=== PATIENT | female | born 1950 | race Caucasian/White ===

== ENCOUNTER → 2017-10-13 11:29 | Outpatient (CLI) | payer OTHER, SELFPAY ==
--- NOTE | 2017-10-13 13:22 | STRESSREP ---
Stress Test Report Exercise stress test. 67-year-old lady with a history of chest pain. Stress protocol: Resting EKG demonstrates normal sinus rhythm with a rate of 76 bpm normal intervals and noted resting blood pressure is 108/78 mmHg. Patient exercised according to regular Camilo protocol for a total duration of 5 minutes. Patient completed 2 minutes into stage III of the Camilo protocol. The maximum heart rate attained was 155 bpm which is 101% maximum predicted heart rate maximum workload attained was 7 metabolic equivalents. Patient maintained sinus rhythm throughout the recording. Upsloping EKG changes only were noted with no meet the criteria for ischemia. No clinical angina was noted. The resting blood pressure is 108/78 with a peak blood pressure 162/74. Conclusion 1 exercise stress test with no EKG criteria for ischemia Good functional capacity.
== END ==
PROVIDERS: Family Provider Family Medicine; PCP Family Medicine; Visit Provider Family Medicine
DX: R07.9 Chest pain, unspecified (principal)
CPT/HCPCS: 93017

== ENCOUNTER 2018-08-21 07:16 | Day surgery (SDC) | payer SELFPAY ==
[2018-08-21] VITALS (8 sets, daily range): BP systolic 76–126; BP diastolic 44–87; PULSE 73–88; RESP 16; TEMP 36.2–36.3; O2SAT 80–100; BMI 34.8
--- NOTE | 2018-08-21 | COLBX_PTH ---
PATIENT: DIANE VASQUEZ LOC: EN U#:[id number] AGE/SX: 68/F ROOM: RE08/21/[address]: Dr. Andrei Francois MD : 1950 BED: DIS: 08/21/2018 SPEC #: [id number] RECD: 08/21/18 11:34 STATUS: ANNA MARIE ORTIZ #: [id number] JORDY: 08/21/18 00:[address]: Andrei Francois DEPT: SURGICAL PATHOLOGY RECD BY: Ulisses Monroe ENTERED: 08/21/18 11:35 SP TYPE: COLON BX OTHR DR: Dr. Tam Bowser MD Tissues: Transverse colon Procedures: Surgery Specimen Level IV HEADER OPERATION: Colonoscopy - open access (MOD) PRE-OP DIAGNOSIS: Screening TISSUE SUBMITTED: Biopsy polyps (2) mid transverse MICROSCOPIC DIAGNOSIS Mid transverse colon polyps, biopsy: Fragments of tubular adenoma. AM:marlon 08/22/18 COMMENT Case has been reviewed in consultation with Dr. Sanchez who concurs with the above diagnosis. IDC:ROSALEE MICROSCOPIC DESCRIPTION Slides are reviewed. GROSS DESCRIPTION Received in fixative is one container labeled with the patient's name and designated biopsy polyps mid transverse (two polyps). The specimen consists of multiple irregular fragments of light grove soft tissue that in aggregate measure 0.8 x 0.5 x 0.1 cm. The specimen is totally submitted in one cassette. / ROSALEE:marlon 08/21/18 TC:5 CPT: 03347
--- NOTE | 2018-08-21 07:42 | PCM.HP.STD ---
Problem List (1) Screening for intestinal cancer Status: Acute History of Present Illness Date of Admission: 08/21/18 The patient is a 68 year old F who presents for screening colonoscopy. She has never had a previous endoscopy. She denies bright red blood per rectum or melena. No abdominal pain. No acute change in bowel habits. She denies any direct family member with colon cancer. She otherwise states that she enjoys good health. She did have a cardiac stress test a year ago which she was told was fine Past Medical History Allergies No Known Allergies Allergy (Verified 08/17/18 14:42) Home Medications: Ambulatory Orders Medication Instructions Recorded Cranberry Fruit [Cranberry] 500 - 1,000 mg PO DAILY 08/17/18 Mulit Avtar 1 pkt PO DAILY 08/17/18 Multivitamin And Minerals 10 ml PO DAILY 08/17/18 Smoking Status: Never smoker Tobacco Use: Non-smoker Review of Systems Constitutional: Denies: Anorexia Cardiovascular: Denies: Chest Pain Respiratory: Denies: Cough Gastrointestinal: Denies: Abdominal Pain Endocrine: Denies: Change in Body Habitus VTE Information - Inpt Only VTE Present on Admission: No Patient Problems: Active and Suspected Problems Screening for intestinal cancer (Acute) - Physical Exam General: Alert, Oriented x3, Cooperative, No apparent distress HEENT: Atraumatic Oral: Moist Mucosa Neck: Supple Lungs: Clear to auscultation Cardiovascular: Regular rate, Regular Rhythm Abdomen: Bowel Sounds Present, Soft, Non Tender Extremities: No clubbing, No Calf Tenderness Musculoskeletal: No Tenderness to Palpation of Joints or Extremities Lymphatic: No Cervical, Supraclavicular, or Inguinal Adenopathy Vital Signs Temp Pulse Resp BP Pulse Ox 97.3 F L 88 16 124/87 H 99 08/21/18 07:39 08/21/18 07:39 08/21/18 07:39 08/21/18 07:39 08/21/18 07:39 Oxygen Delivery Method Room Air Weight: 196 lb 12.8 oz Body Mass Index (BMI) 34.8 Assessment/Plan All Active Problems Screening for intestinal cancer (Acute) I proposed with the patient is screening colonoscopy with possible biopsy or polypectomy as indicated. She has had an opportunity to ask and have questions answered. She presents via our open access program. We will proceed as noted. Andrei Francois M.D., F.A.C.S.
--- NOTE | 2018-08-21 08:24 | OP.ENDO_ITS ---
Patient Name: Radha Rey Procedure Date: 08/21/2018 7:36 AM Date of : 1950 Age: 68 Procedure: Colonoscopy Indications: Screening for colorectal malignant neoplasm Providers: Andrei Francois MD Referring MD: Andrei Francois MD Medicines: Midazolam 3.5 mg IV, Meperidine 100 mg IV Patient Profile: This is a 68 year old female. Last Colonoscopy: none. The patient's first colonoscopy is today. Complications: No immediate complications. Procedure: Pre-Anesthesia Assessment: - Prior to the procedure, a History and Physical was performed, and patient medications and allergies were reviewed. The patient's tolerance of previous anesthesia was also reviewed. The risks and benefits of the procedure and the sedation options and risks were discussed with the patient. All questions were answered, and informed consent was obtained. Prior Anticoagulants: The patient has taken no previous anticoagulant or antiplatelet agents. ASA Grade Assessment: II - A patient with mild systemic disease. After reviewing the risks and benefits, the patient was deemed in satisfactory condition to undergo the procedure. After I obtained informed consent, the scope was passed under direct vision. Throughout the procedure, the patient's blood pressure, pulse, and oxygen saturations were monitored continuously. The colonoscope was introduced through the anus and advanced to the cecum, identified by appendiceal orifice and ileocecal valve. The colonoscopy was performed without difficulty. The patient tolerated the procedure well. The quality of the bowel preparation was adequate to identify polyps. The ileocecal valve was photographed. Moderate Sedation: Moderate (conscious) sedation was personally administered by the endoscopist. The following parameters were monitored: oxygen saturation, heart rate, blood pressure, and response to care. Total physician intraservice time was 15 minutes. Scope In: 8:02:56 AM Scope Withdrawal Time 0 hours 8 minutes 41 seconds Scope Out: 8:16:59 AM Total Procedure Duration Time 0 hours 14 minutes 3 seconds Findings: Hemorrhoids were found on perianal exam. Multiple diverticula were found in the sigmoid colon and descending colon. There was no evidence of diverticular bleeding. Two sessile polyps were found in the mid transverse colon. The polyps were small in size. These polyps were removed with a cold biopsy forceps. Resection and retrieval were complete. Impression: - Hemorrhoids found on perianal exam. - Diverticulosis in the sigmoid colon and in the descending colon. There was no evidence of diverticular bleeding. - Two small polyps in the mid transverse colon, removed with a cold biopsy forceps. Resected and retrieved. Recommendation: - Discharge patient to home. - Resume previous diet. - Continue present medications. - Repeat colonoscopy in 5 years for surveillance based on pathology results. - Telephone my office for pathology results in 1 week. Procedure Code(s): --- Professional --- 76072, Colonoscopy, flexible; with biopsy, single or multiple 70605, 59, Moderate sedation services provided by the same physician or other qualified health childcare worker performing the diagnostic or therapeutic service that the sedation supports, requiring the presence of an independent trained observer to assist in the monitoring of the patient's level of consciousness and physiological status; initial 15 minutes of intraservice time, patient age 5 years or older Diagnosis Code(s): --- Professional --- Z12.11, Encounter for screening for malignant neoplasm of colon K64.9, Unspecified hemorrhoids D12.3, Benign neoplasm of transverse colon (hepatic flexure or splenic flexure) K57.30, Diverticulosis of large intestine without perforation or abscess without bleeding CPT copyright 2017 [employer]. All rights reserved. The codes documented in this report are preliminary and upon time study technologist review may be revised to meet current compliance requirements. Andrei Francois MD 08/21/2018 8:23:16 AM This report has been signed electronically. Number of Addenda: 0 Note Initiated On: 08/21/2018 7:36 AM
== END 2018-08-21 09:15 | disposition home or self-care (01) ==
LOC: EN 07:23 → AC 07:28
PROVIDERS: Family Provider Family Medicine; PCP Family Medicine; Referring Provider Surgery; Visit Provider Surgery
PROC: 0DJD8ZZ Inspection of Lower Intestinal Tract, Via Natural or Artificial Opening Endoscopic (ICD-10-PCS; CPT 45378; principal; 2018-08-21 08:25)
DX: Z12.11 Encounter for screening for malignant neoplasm of colon (principal); D12.3 Benign neoplasm of transverse colon; K64.9 Unspecified hemorrhoids; K57.30 Diverticulosis of large intestine without perforation or abscess without bleeding
CPT/HCPCS: 45380; 88305; 99152; 99153; J7120

== ENCOUNTER → 2020-07-22 | Outpatient (CLI) | payer SELFPAY ==
--- NOTE | 2020-07-22 | MASS_PTH ---
PATIENT: DIANE VASQUEZ LOC: [facility] U#:[id number] AGE/SX: 70/F ROOM: RE07/22/[address]: Dr. Andrei Francois MD : 1950 BED: DIS: 07/22/2020 SPEC #: [id number] RECD: 07/22/20 15:29 STATUS: ANNA MARIE ORTIZ #: [id number] JORDY: 07/22/20 00:[address]: Andrei Francois DEPT: SURGICAL PATHOLOGY RECD BY: Ulisses Monroe ENTERED: 07/23/20 13:02 SP TYPE: Mass OTHR DR: Dr. Tam Bowser MD Tissues: Chest wall, NOS Procedures: Surgery Specimen Level III HEADER OPERATION: Excision mid chest mass PRE-OP DIAGNOSIS: Mid chest mass TISSUE SUBMITTED: Mid chest mass MICROSCOPIC DIAGNOSIS Mass of mid chest, excision: Mature adipose tissue consistent with angiolipoma. AM:marlon 12/18/20 MICROSCOPIC DESCRIPTION Slides are reviewed. GROSS DESCRIPTION Received in fixative is one container labeled with the patient's name and designated mid chest mass. The specimen consists of an irregular fragment of yellow fatty tissue measuring 1.5 x 1 x 1 cm. The specimen is bisected and totally submitted in one cassette. / AM:marlon 07/23/20 TC:1 CPT: 16036
== END | disposition home or self-care (01) ==
PROVIDERS: PCP Family Medicine; Visit Provider Surgery
DX: R22.2 Localized swelling, mass and lump, trunk (principal)
CPT/HCPCS: 88304; 88305

== ENCOUNTER → 2020-09-18 09:06 | Outpatient (CLI) | payer SELFPAY ==
[2020-07-10 08:33] VITALS: BMI 33.9
--- NOTE | 2020-09-18 09:14 | BI_ITS ---
MAMMOGRAPHY - UNILATERAL SCREENING: RIGHT BREAST REASON FOR EXAM: Female, 70 years old. Routine annual screening examination (unilateral). PERTINENT HISTORY: Personal history of breast cancer. Prior left mastectomy. Daughter with breast cancer. Mother with breast cancer. TECHNIQUE: Digital unilateral breast celena (3D mammographic acquisition) in the CC and MLO projections. 2-D mediolateral oblique (MLO) and craniocaudad (CC) views of both breasts were obtained. CAD: Full Field Digital Mammography with Computer Added Detection was performed. COMPARISON: Comparison is made with prior study dated 08/21/2017. FINDINGS: Breast Composition: The breasts are heterogeneously dense, which may obscure small masses. There are no dominant masses or suspicious calcifications. No other significant abnormalities are identified. There has been no significant change since the prior study. BI/SCREEN MAMM (CAD) W/CELENA UNI R IMPRESSION: Stable unilateral screening mammogram. Yearly follow-up mammogram recommended. (A) ASSESSMENT CATEGORY: BIRADS Category 1: Negative. A letter regarding these results will be sent to the patient by the facility within 30 days. Approximately 10% of breast cancers are not detected by mammography. A normal mammogram should not delay biopsy of a clinically suspicious abnormality. [id number] Electronically Signed: Lc Bethea MD at 11:05 EST , Service support ,
== END ==
PROVIDERS: PCP Family Medicine; Referring Provider Surgery; Visit Provider Surgery
DX: Z12.31 Encounter for screening mammogram for malignant neoplasm of breast (principal)
CPT/HCPCS: 77063; 77067

== ENCOUNTER 2021-09-27 06:42 | Outpatient (CLI) | payer OTHER, SELFPAY ==
--- NOTE | 2021-09-27 06:45 | ECHOD_ITS ---
Reason For Study: Chest Pain Procedure This was a 2D Doppler, Color Flow transthoracic echocardiogram. The study was technically difficult. Exam performed in department. Left Ventricle Normal LV size. Left ventricular systolic function is normal. The estimated ejection fraction is 65 %. No evidence for diastolic dysfunction. No regional wall motion abnormalities noted. Right Ventricle Normal RV size. Normal systolic function. Atria Normal left atrium. Normal right atrium. No doppler evidence for ASD. Mitral Valve There is no mitral annular calcification. Normal mitral valve. Trivial mitral valve insufficiency. Tricuspid Valve Normal tricuspid valve. Mild tricuspid valve insufficiency. Right ventricular systolic pressure estimated to be 28 mmHg. Aortic Valve Trisinus/trileaflet aortic valve. Mild focal aortic valve calcification. Pulmonic Valve The pulmonic valve is not well visualized. Great Vessels The aortic root is not well visualized. Pericardium/Pleural No pericardial effusion. MMode/2D Measurements & Calculations LVIDd: 3.8 cm IVSd: 1.2 cm LA dimension: 3.2 cm LVIDs: 2.9 cm LVPWd: 1.0 cm RVDd: 2.9 cm FS: 24.3 % LAV(MOD-bp): 29.8 ml LA A4 area: 12.9 cm2 RA A4 area: 8.6 cm2 LAV(MOD-bp) Indexed: 15.6 ml/m2 LAV(MOD-sp2): 28.7 ml LAV(MOD-sp4): 29.9 ml Time Measurements MV dec time: 0.33 sec Doppler Measurements & Calculations MV E max manuelito: 70.6 cm/sec Lat Peak E' Manuelito: 5.9 cm/sec Med Peak E' Manuelito: 6.3 cm/sec MV A max manuelito: 110.5 cm/sec E/E' lat: 11.9 E/E' med: 11.3 MV E/A: 0.64 MV V2 max: 113.2 cm/sec MV P1/2t max manuelito: 73.9 cm/sec Ao V2 max: 126.8 cm/sec MV max P.1 mmHg MV P1/2t: 78.9 msec Ao max P.4 mmHg MV V2 mean: 64.6 cm/sec MV dec slope: 274.3 cm/sec2 MV mean P.9 mmHg MVA(P1/2t): 2.8 cm2 MV V2 VTI: 20.9 cm LV V1 max: 119.3 cm/sec PA V2 max: 112.7 cm/sec TR max manuelito: 251.8 cm/sec LV V1 max P.7 mmHg TR max P.4 mmHg ECHO/Echo Complete Interpretation Summary The study was technically difficult. Left ventricular systolic function is normal. The estimated ejection fraction is 65 %. Trivial mitral valve insufficiency. Mild tricuspid valve insufficiency. Mild focal aortic valve calcification. Right ventricular systolic pressure estimated to be 28 mmHg. No evidence for diastolic dysfunction. Ordering Physician: Homero Mendoza Referring Physician: Tam Bowser Performed By: Aidan Dooley RCS
--- NOTE | 2021-09-27 19:27 | STRESSREP_ITS ---
Stress Test Report Date: 09-27-2021 Procedure: Exercise tolerance test/imaging study Indications: Chest pain Consent: Per the patient Procedure: The patient exercised on a Camilo protocol for 4 minutes completing Stage I and 1 minute of Stage II achieving a peak heart rate of 151 bpm (102% predicted maximal heart rate) with a peak blood pressure 194/60 mmHg and a peak MET capacity of 7 METs. The baseline ECG demonstrated normal sinus rhythm. The peak exercise ECG demonstrated somatic/motion artifact with no obvious ECG changes. There were no cardiac dysrhythmias pretest, during exercise, or recovery. The functional capacity was considered decreased. There was no complaint of chest discomfort during exercise or recovery. The examination was discontinued secondary to dyspnea. Impression: 1. Technically adequate (percent predicted maximal heart rate greater than 85%) exercise tolerance test 2. Peak exercise ECG with somatic/motion artifact with no obvious ECG changes 3. There were no cardiac dysrhythmias pretest, during exercise, or recovery 4. Nuclear images pending Myocardial perfusion imaging study: Technique: The patient was injected with 11.8 mCi of technetium 99m Cardiolite and subsequently rest SPECT Cardiolite nuclear imaging was obtained in the horizontal long, vertical long, and short axis views. The patient exercised on a Camilo protocol for 4 minutes completing Stage I and 1 minute of Stage II achieving a peak heart rate of 151 bpm (102% predicted maximal heart rate) with a peak blood pressure 194/60 mmHg and a peak MET capacity of 7 METs. The patient was injected with 34.2 mCi of technetium 99m Cardiolite and subsequently stress SPECT Cardiolite nuclear imaging was obtained in the horizontal long, vertical long, and short axis views. A gated Cardiolite study at peak stress was obtained. Interpretation: Rest and stress SPECT Cardiolite nuclear imaging status post realignment, normalization, and attenuation correction, demonstrates the appearance of relative uniform tracer uptake and myocardial perfusion appearing within normal limits. There is end systolic thickening and brightening. The gated Cardiolite study demonstrates myocardial thickening and inward wall motion. The reported LVEF is 80%. Impression: 1. Rest and stress SPECT Cardiolite nuclear imaging demonstrate relative uniform tracer uptake and myocardial perfusion appearing within normal limits. 2. The gated Cardiolite study reports an LVEF of 80%. This note was generated with [employer] software. It may contain incorrect words, spelling, and punctuation that were not noted in checking the note before signing.
== END 2021-09-27 23:59 | disposition home or self-care (01) ==
LOC: CVS 06:42
PROVIDERS: PCP Family Medicine; Referring Provider Internal Medicine Cardiovascular Disease; Visit Provider Internal Medicine Cardiovascular Disease
DX: R07.9 Chest pain, unspecified (principal)
CPT/HCPCS: 78452; 93017; 93306; A9500; A4216

== ENCOUNTER → 2022-01-10 | Outpatient (CLI) | payer OTHER, SELFPAY ==
--- NOTE | 2022-01-10 06:59 | CT_ITS ---
EXAM: CT RIGHT LOWER EXTREMITY WITHOUT AND WITH INTRAVENOUS CONTRAST, HIP CLINICAL INDICATION: OSTEOARTHRITIS right hip pain worsening TECHNIQUE: Helically acquired images were obtained of the right hip without and with intravenous contrast. This CT exam was performed using one or more of the following dose reduction techniques: automated exposure control, adjustment of the mA and/or kV according to patient size, and/or use of iterative reconstruction technique. This report was created using [employer] report [employer] technology. CONTRAST: IV 75mL Isovue-300 RADIATION DOSE: CTDIvol = 36.4 mGy, DLP = 1622.24 mGy-cm COMPARISON: None. FINDINGS: BONES/JOINTS: Severe right degenerative findings of the hip. There are osteoarthritic changes of the right femoral head with marginal osteophyte formation. There is osteoarthritic spur formation of the right acetabular rim. There is moderate articular joint space narrowing of the right hip. No acute fracture. No subluxation. Normal alignment. SOFT TISSUES: Unremarkable. No soft tissue swelling or gas. No radiopaque foreign body. CT/Extremity Lower W/WO Contrast IMPRESSION: Severe right degenerative findings of the hip. Electronically Signed: Kyle Felton MD at 18:20 EDT ,
[2022-01-10 07:11] LABS: CREATININE FINGERSTICK < 0.9 mg/dL (0.55-1.02); EGFR FINGERSTICK > 60.0000 mL/min (>60)
== END | disposition home or self-care (01) ==
PROVIDERS: PCP Family Medicine; Referring Provider Physician Assistant; Visit Provider Physician Assistant
DX: M16.11 Unilateral primary osteoarthritis, right hip (principal)
CPT/HCPCS: 73702; Q9967

== ENCOUNTER → 2022-06-03 | Outpatient (CLI) | payer OTHER, SELFPAY ==
[2022-06-03 09:18] LABS: Absolute Lymphocyte Count 1.88 X10^3/uL (0.83-4.51); Absolute Neutrophil Count 2.7 X10^3/uL (2.0-7.7); Basophil# 0.04 X10^3/uL; Basophil% 0.8 % (0-1); Eosinophil# 0.12 X10^3/uL; Eosinophils% 2.3 % (0-5); Hematocrit 43.1 % (37-47); Lymphocyte # 1.88 X10^3/ul (0.83-4.51); Lymphocyte % 35.6 % (19-41); Mean Corp Hgb Conc 30.2 g/dL (32-36); Mean Corpuscular Hgb 25.3 pg (27.0-32.0); Mean Platelet Vol. 9.2 fl (6.2-12.0); Monocyte# 0.53 X10^3/uL; NRBC Flagged by Analyzer 0 % (0-5); Neutrophil % 51.1 % (47-70); Platelet Count 276 K/mm3 (150-450); Red Blood Count 5.13 M/mm3 (4.2-5.4); White Blood Count 5.3 K/mm3 (4.4-11.0)
[2022-06-03 09:29] LABS: Albumin, Serum 3.7 g/dL (3.2-5.0); Anion Gap 4 (5-15); BUN 21 mg/dL (7-18); BUN/Creat Ratio 26.3 RATIO (10-20); Calcium,Total 9.2 mg/dL (8.5-10.1); Chloride 107 mmol/L (98-107); EST Glomerular Filtration Rate 75 mL/min (>60); Est Glom Filt Rate - Afr Amer 91 mL/min (>60); Glucose 76 mg/dL (74-106); Potassium 4.4 mmol/L (3.5-5.1); Sodium Level 139 mmol/L (136-145)
[2022-06-03 10:03] LABS: Hemoglobin A1c 6.2 % (3.8-5.6)
--- NOTE | 2022-06-03 23:58 | EKG12_ITS ---
Test Reason : PREOP Blood Pressure : / mmHG Vent. Rate : 079 BPM Atrial Rate : 079 BPM P-R Int : 148 ms QRS Dur : 084 ms QT Int : 358 ms P-R-T Axes : 065 014 024 degrees QTc Int : 410 ms Normal sinus rhythm Normal ECG Confirmed by CHINA JAIN, STEPHAN ([id number]), health editor LASHAE MUNGUIA ([id number]) on 06/06/2022 8:35:30 AM Referred By: Portillo Briggs Confirmed By:STEPHAN ATKINSON MD
== END | disposition home or self-care (01) ==
PROVIDERS: PCP Family Medicine; Referring Provider Physician Assistant Surgical; Visit Provider Physician Assistant Surgical
DX: Z01.818 Encounter for other preprocedural examination (principal); Z01.810 Encounter for preprocedural cardiovascular examination
CPT/HCPCS: 36415; 80048; 82040; 83036; 85025; 93005

== ENCOUNTER → 2022-07-20 | Outpatient (CLI) | payer OTHER, SELFPAY ==
[2022-07-20 11:34] LABS: Erythrocyte Sedimentation Rate 21 mm/hr (0-30)
[2022-07-20 11:36] LABS: Absolute Lymphocyte Count 1.52 X10^3/uL (0.83-4.51); Absolute Neutrophil Count 5.1 X10^3/uL (2.0-7.7); Basophil# 0.03 X10^3/uL; Basophil% 0.4 % (0-1); Eosinophil# 0.16 X10^3/uL; Eosinophils% 2.2 % (0-5); Hematocrit 38.1 % (37-47); Hemoglobin 10.9 g/dL (12.0-15.0); Lymphocyte # 1.52 X10^3/ul (0.83-4.51); Lymphocyte % 20.4 % (19-41); Mean Corp Hgb Conc 28.6 g/dL (32-36); Mean Corpuscular Hgb 24.4 pg (27.0-32.0); Mean Corpuscular Volume 85.4 fL (81-99); Mean Platelet Vol. 9.5 fl (6.2-12.0); Monocyte# 0.63 X10^3/uL; Monocyte% 8.5 % (0-10); NRBC Flagged by Analyzer 0 % (0-5); Neutrophil # 5.08 X10^3/uL (2.7-7.7); Neutrophil % 68.2 % (47-70); Platelet Count 318 K/mm3 (150-450); RBC Distribution Width CV 15.6 % (11.6-14.6); RBC Distribution Width SD 48.5 fl (35.1-43.9); Red Blood Count 4.46 M/mm3 (4.2-5.4); White Blood Count 7.4 K/mm3 (4.4-11.0)
== END | disposition home or self-care (01) ==
LOC: LAB 09:45
PROVIDERS: PCP Family Medicine; Visit Provider Physician Assistant Surgical
DX: Z96.641 Presence of right artificial hip joint (principal)
CPT/HCPCS: 36415; 85025; 85652; 86140

== ENCOUNTER 2022-10-26 09:00 | Outpatient (RCR) | payer SELFPAY, OTHER ==
--- NOTE | 2022-09-23 11:35 | HP.PTEVAL ---
Patient's Visit Information DIANE VASQUEZ is a 72 year old F referred to Physical Therapy by Dr. Drake Jimenez MD with a diagnosis of PRESENCE OF RIGHT ARTIFICIAL HIP JOINT ,WEAKNESS. Date of Evaluation: 09/23/22 Physical Therapist: Patricio Cason PT, Cert MDT, OCS - Visit Plan Frequency: 2-3x /Week Duration: 4-6 Weeks Plan: PT INTERVETIONS ROM RIGHT HIP,STRENGTHENING RIGHT HIP ESPECIALLY GLUT MEDIUS ,GAIT ,BLANCE TRAINING AND FUNCTIONAL STRENGTHENING - Subjective This 72 y/o female presents marge physical therapy with right THR . Patient underwent s/p anterior JIMBO Jun 17 2022 at [facility] with patient D/C DOS with fww WBAT RLE. Patient developed infection with being on antibiotics. Patient HHC PT ~ 4 weeks then developed bursitis held PT. Recently , seen DR recommended PT . Patient had x-rays 2 weeks ago looked good. No medications. Pain is located lateral hip and thigh. Patient uses QC for gait. Most aggravating factors walking extended standing impairs housework tasks and sitting on hard surfaces. Denies paresthesia/tingling. Patient pain doesn't affects sleeping. Patient steps with one steps at time. Home situation story one with one step with walk in shower. Patient bath and dress an cooking/laundry. Patient condition affects QOL. SOCIAL: . VOCATION: home - Pain Right Hip Pain Intensity (Out of 10): 2 Pain Intensity Range: 10 - Objective POSTURE: mild forward posture. GAIT: ambulates with QC with 2 point gait pattern and no device with decrease stance time antalgic gait lateral sway from glut medieus weakness. BALANCE: good -. STAIRS: one step at time with rails. AROM: hip flexion flexion 100 degrees ,hip abduction 35 degrees ,knee flexion 110 degrees. MMT: ( peak force) quads 27.6,hamstrings 28.3 ,hip flexion 24.3 ,hip abduction 6.9 - Balance/Special Test Scores Lower Extremity Functional Score: 39 TUG Test Time Seconds: 10.8 WOMAC Total Score: 40 WOMAC Percentatge: 58.3400 - Goals Goal 1:: Patient to be I with HEP for JIMBO Goal Time Frame: 4-6 Weeks Goal 2:: Patient to ambulate without device with gait pattern normal bethel Goal Time Frame: 4-6 Weeks Goal 3:: Patient to improve peak force hip abduction by 5-10 to improve gait. Goal Time Frame: 4-6 Weeks Goal 4:: Patient to improve WOMAC score by 10 points to improve QOL Goal Time Frame: 4-6 Weeks Goal 5:: Patient to improve TUG score by < 10 seconds to improve function Goal Time Frame: 4-6 Weeks Goal 6:: Patient LFES score by 5-10 points to improve QOL - Rehabilitation Potential Physical Therapy Diagnosis: This patient underwent s/p JIMBO anterior approach with weakness hip abd ,decrease gait and endurance thus benefit from skilled PT Rehabilitation Potential: Good - Anticipated Interventions Patient/Client Instruction: Educate patient on: Condition, Plan of Care For the Purpose of:: To decrease pain, To increase ROM, To improve ability to perform ADL's, To improve performance and independence with ADL's, To improve ability of physical actions for home/community/work/leisure, To improve gait and locomotor functions, To improve health of tissue, To decrease soft tissue restriction, To increase flexibility/ROM, To improve endurance, To improve balance Therapeutic Exercise to Include: Strength training, Endurance training, Balance training, Gait and locomotor training, Active ROM Comment: HIP/QUADS/HAMS For the Purpose of:: To decrease pain, To increase ROM, To improve muscle performance and motor function, To increase tolerance to activity/condition/position, To improve ability of physical actions for home/community/work/leisure, To improve gait and locomotor functions, To increase flexibility/ROM, To improve endurance, To improve balance, To improve tolerance to ADL's Thank you for the opportunity to evaluate your patient. For Medicare and Medicare HMO plans, please review the plan of care and approve it. It will need to be FAXED BACK to us at [phone] for Medicare purposes. For Medicare only, by signing this I certify the plan of care. Please let me know if there are questions or concerns regarding this plan of care. Physician Signature: Date:
--- NOTE | 2022-10-26 09:23 | HP.PTDCSUM_ITS ---
It has been my pleasure to treat DIANE VASQUEZ referred by Dr. Drake Jimenez MD, with the diagnosis of PRESENCE OF RIGHT ARTIFICIAL HIP JOINT ,WEAKNESS for a total of 8 visit(s). Discharge Date: 10/26/22 Please see the following information for a summary of their discharge status. Subjective: Feels alot better. Dont need to use cane Right Hip Pain Intensity (Out of 10): 1 Objective/Function: POSTURE: WFL. GAIT: ambulates with reciprocal device no cane. STAIRS: alternating steps with rails. MMT: quads/hams 4/5 hip flexion 4- /5 ,abd 4-/5 Goal 1:: Patient to be I with HEP for JIMBO Goal Progress: Goal Met Goal 2:: Patient to ambulate without device with gait pattern normal bethel Goal Progress: Goal Met Goal 3:: Patient to improve peak force hip abduction by 5-10 to improve gait. Goal Progress: Goal Met Goal 4:: Patient to improve WOMAC score by 10 points to improve QOL Goal Progress: Goal Met Goal 5:: Patient to improve TUG score by < 10 seconds to improve function Goal Progress: Goal Met Goal 6:: Patient LFES score by 5-10 points to improve QOL Goal Progress: Goal Met Plan: D/C Discharge Comments: hep If there are questions or concerns regarding this patient's physical therapy, please feel free to call me at [phone]. Thank you for the referral of this patient. Sincerely, Patricio Cason, PT, Cert MDT, OCS Balance/Gait/Functional tests - Balance/Special Test Scores Lower Extremity Functional Score: 60 TUG Test Time Seconds: 7.3 Tug Test: <10 sec.=free mobile WOMAC Total Score: 4 WOMAC Percentage: 95.8400
--- NOTE | 2022-10-26 09:24 | HP.PTDCSUM_ITS ---
It has been my pleasure to treat DIANE VASQUEZ referred by Dr. Drake Jimenez MD, with the diagnosis of PRESENCE OF RIGHT ARTIFICIAL HIP JOINT ,WEAKNESS for a total of 8 visit(s). Discharge Date: 10/26/22 Please see the following information for a summary of their discharge status. Subjective: Feels alot better. Dont need to use cane Right Hip Pain Intensity (Out of 10): 1 % Improvement: 75 Objective/Function: POSTURE: WFL. GAIT: ambulates with reciprocal device no cane. STAIRS: alternating steps with rails. MMT: quads/hams 4/5 hip flexion 4- /5 ,abd 4-/5 Goal 1:: Patient to be I with HEP for JIMBO Goal Progress: Goal Met Goal 2:: Patient to ambulate without device with gait pattern normal bethel Goal Progress: Goal Met Goal 3:: Patient to improve peak force hip abduction by 5-10 to improve gait. Goal Progress: Goal Met Goal 4:: Patient to improve WOMAC score by 10 points to improve QOL Goal Progress: Goal Met Goal 5:: Patient to improve TUG score by < 10 seconds to improve function Goal Progress: Goal Met Goal 6:: Patient LFES score by 5-10 points to improve QOL Goal Progress: Goal Met Plan: D/C Discharge Comments: hep If there are questions or concerns regarding this patient's physical therapy, please feel free to call me at [phone]. Thank you for the referral of this patient. Sincerely, Patricio Cason, PT, Cert MDT, OCS Balance/Gait/Functional tests - Balance/Special Test Scores Lower Extremity Functional Score: 60 TUG Test Time Seconds: 7.3 Tug Test: <10 sec.=free mobile WOMAC Total Score: 4 WOMAC Percentage: 95.8400
== END 2022-10-26 19:00 | disposition home or self-care (01) ==
LOC: PT 09:00
PROVIDERS: PCP Family Medicine; Referring Provider Specialist; Visit Provider Specialist
DX: R53.1 Weakness (principal); Z96.641 Presence of right artificial hip joint
CPT/HCPCS: 97110; 97162

== ENCOUNTER 2022-11-04 13:59 | Emergency (ER) | payer OTHER, SELFPAY ==
[2022-11-04 14:00] VITALS: BP 144/65; PULSE 86; RESP 16; TEMP 37.5; O2SAT 99
--- NOTE | 2022-11-04 14:17 | ED.VIS.LOWEX ---
HPI History of Present Illness Chief Complaint: Lower Extremity Injury Informant: patient Narrative Narrative: Patient presents with DVT in both lower extremities. This patient does have a history of a DVT in the left leg about 28 years ago when she had breast cancer. She has had no recurrence of this. She does not feel ill. She did have a hip replaced on the right side in June but has been doing well. She saw her orthopedic doctor yesterday because she is just really started some swelling in the last few days. She noticed swelling only in her right leg. She has a little bit of discomfort along the anterior medial right leg between the knee and the groin. But there is some swelling distal. She is not short of breath. No fevers or chills. Does not feel lightheaded. No abdominal pain. No pain with eating. No blood in the stool. She is not on blood thinners now. No recent bleeding in the urine or dental or other areas. She already had ultrasound today that did show bilateral lower extremity clots but they also included common femoral veins. [facility] Medical History Back pain DVT (deep venous thrombosis) History of breast cancer Osteoarthritis Subcutaneous mass Subcutaneous mass of abdominal wall Syncope Home Medications Multivitamin And Minerals 10 ml PO DAILY 08/17/18 [History Last Taken Unknown] omega-3 fatty acids 1,250 mg capsule 1,250 mg PO DAILY 07/10/20 [History Last Taken Unknown] aspirin 81 mg tablet,delayed release 81 mg PO DAILY #1 TAB 08/30/21 [Rx Last Taken Unknown] capsicum (cayenne) 500 mg capsule 500 mg PO DAILY PRN supplement\ 08/30/21 [History Last Taken Unknown] apixaban 5 mg tablet (Eliquis) 5 mg PO BID #74 tabs 11/04/22 [Rx Last Taken Unknown] Allergy/AdvReac Type Severity Reaction Status Date / Time No Known Allergies Allergy Verified 08/30/21 15:57 Family History Mother Breast cancer Sister Breast cancer Heart disease Daughter Breast cancer Son Seizures Heart disease Surgical History History of colonoscopy (~08/2018) History of left mastectomy Social History Smoking Status: Never smoker alcohol intake: never substance use type: does not use caffeine: Yes Type: coffee Number of servings: 1 ROS ROS ED Constitutional Constitutional ED: Denies chills or fever(s) ENT ENT ED: Denies rhinorrhea or sore throat Cardiovascular Cardiovascular: Denies chest pain, palpitations or racing heartbeat Respiratory/Chest Respiratory/Chest: Denies cough, dyspnea or dyspnea on exertion Gastrointestinal Gastrointestinal: Denies diarrhea, nausea or vomiting Genitourinary Genitourinary ED: Denies hematuria Musculoskeletal Musculoskeletal: Reports other Details: Soreness right leg as in history of present illness. ; Denies myalgias Integumentary Denies rash Neurologic Neurologic: Denies paresthesias or weakness Endocrine Endocrinology: Denies polydipsia or polyuria Hematologic/Lymphatic Hematologic/Lymphatic: Denies easy bleeding or easy bruising Allergic/Immunologic Allergic/Immunologic ED: Denies urticaria EXAM Physical Exam Narrative Exam Narrative: Patient awake alert no acute distress. HEENT shows no trauma. Mucous membranes are moist. Conjunctive a shows no pallor. Lungs are clear bilaterally. Saturations are 99% on room air showing no hypoxia and breathing is easy and unlabored. Heart is regular. I hear no murmur gallop or rub. It does not sound irregular in any way. Abdomen is soft and nontender Skin shows no pallor or rashes Extremities does show some swelling in the right leg. The right calf is just about 2 to 2-1/2 cm larger than the left at 10 cm below the tibial tuberosity. But there is no indication of phlegmasia cerulea dolens or albans. Const Vital Signs: 11/04/22 14:00 Temperature 99.5 F H Temperature Source Temporal Pulse Rate 86 Respiratory Rate 16 Blood Pressure 144/65 H Blood Pressure Mean 91 Pulse Ox 99 Oxygen Delivery Method Room Air MDM MDM MDM Narrative Medical decision making narrative: I reviewed her outpatient ultrasound. This does show extensive DVT in both legs. Blood work showed normal white count. Hemoglobin is a little bit low but at her recent baseline. Platelets are normal. Electrolytes show no marked abnormalities including normal renal function. This patient does have clots high on both sides. But she has no left leg symptoms at all. This would make it highly unlikely that she would have common return obstruction. She does get some swelling in the right lower extremity. But its not pale or cyanotic. She has palpable pulses. Good temperature. She has mild swelling but no notable pain. She overall feels well. She is up walking around the department. I do not think she requires admission for thrombectomy at this time. Although it is certainly possible this could develop we will get her initiated on anticoagulation. We did discuss the case with others and there is no specific protocol regarding common femoral vein occlusion/DVT and admission. I explained specific reasons to return to the patient and her . We also explained the risks of being on anticoagulation. We also explained that she will need close follow-up. She will likely have repeat ultrasounds. She will likely be on medicine for at least 3 to 6 months. She may need further work-up. She has no symptoms consistent with recurrence of cancer. Lab Data Attestation: I reviewed the patient's lab results. Labs: Laboratory Results - last 24 hr 11/04/22 11/04/22 14:34 14:34 WBC 5.1 RBC 4.80 Hgb 11.0 L Hct 38.4 MCV 80.0 L MCH 22.9 L MCHC 28.6 L RDW Std Deviation 48.7 H RDW Coeff of Yuni 17.0 H Plt Count 305 MPV 9.0 Immature Gran % (Auto) 0.200 Neut % (Auto) 46.9 L Lymph % (Auto) 35.4 Harlan % (Auto) 11.8 H Eos % (Auto) 4.9 Baso % (Auto) 0.8 Absolute Neuts (auto) 2.4 Absolute Lymphs (auto) 1.80 Nucleated RBC % 0 Sodium 140 Potassium 4.2 Chloride 109 H Carbon Dioxide 27.0 Anion Gap 4 L BUN 15 Creatinine 0.91 Estim Creat Clear Calc 43.55 Est GFR (MDRD) Af Amer 78 Est GFR (MDRD) Non-Af 64 BUN/Creatinine Ratio 16.5 Glucose 102 Calcium 9.0 Discharge Plan Triage Chief Complaint: Lower Extremity Injury ED Provider: Florencio Cornejo Dx/Rx/DC Orders Clinical Impression: Deep venous thrombosis of both lower extremities Instructions: ED Deep Vein Thrombosis (DVT) Prescriptions: New Eliquis 5 mg tablet 5 mg PO BID Qty: 74 0RF Rx Instructions: 10 mg twice a day for the first week. Then 5 mg twice a day. No Action omega-3 fatty acids 1,250 mg capsule 1,250 mg capsule 1,250 mg PO DAILY capsicum (cayenne) 500 mg capsule 500 mg capsule 500 mg PO DAILY PRN (Reason: supplement\) aspirin 81 mg tablet,delayed release (DR/EC) 81 mg PO DAILY Qty: 1 0RF Multivitamin And Minerals 10 ml PO DAILY Primary Care Provider: Tam Bowser Referrals: Tam Bowser MD [Primary Care Provider] - 1 Week Disposition Disposition: Home, Self Care
[2022-11-04 14:35] VITALS: BMI 36.9
[2022-11-04 14:49] LABS: Absolute Neutrophil Count 2.4 X10^3/uL (2.0-7.7); Basophil# 0.04 X10^3/uL; Basophil% 0.8 % (0-1); Eosinophil# 0.25 X10^3/uL; Eosinophils% 4.9 % (0-5); Hematocrit 38.4 % (37-47); Lymphocyte % 35.4 % (19-41); Mean Corp Hgb Conc 28.6 g/dL (32-36); Mean Corpuscular Hgb 22.9 pg (27.0-32.0); Monocyte% 11.8 % (0-10); NRBC Flagged by Analyzer 0 % (0-5); Neutrophil # 2.38 X10^3/uL (2.7-7.7); Neutrophil % 46.9 % (47-70); Platelet Count 305 K/mm3 (150-450); RBC Distribution Width SD 48.7 fl (35.1-43.9); White Blood Count 5.1 K/mm3 (4.4-11.0)
[2022-11-04 15:00] LABS: Anion Gap 4 (5-15); BUN 15 mg/dL (7-18); BUN/Creat Ratio 16.5 RATIO (10-20); Chloride 109 mmol/L (98-107); Creatinine, Serum 0.91 mg/dL (0.55-1.02); EST Glomerular Filtration Rate 64 mL/min (>60); Est Glom Filt Rate - Afr Amer 78 mL/min (>60); Estimated Creatinine Clearance 43.55 ml/min; Glucose 102 mg/dL (74-106); Potassium 4.2 mmol/L (3.5-5.1); Sodium Level 140 mmol/L (136-145)
[2022-11-04] MEDS: APIXABAN 5 MG TABLET 10 MG PO (15:44)
== END 2022-11-04 15:49 | disposition home or self-care (01) ==
PROVIDERS: Emergency Provider Emergency Medicine; PCP Family Medicine; Visit Provider Emergency Medicine
DX: I82.403 Acute embolism and thrombosis of unspecified deep veins of lower extremity, bilateral (principal); Z79.82 Long term (current) use of aspirin
CPT/HCPCS: 80048; 85025; 99284

== ENCOUNTER → 2022-11-04 | Outpatient (CLI) | payer SELFPAY, OTHER ==
--- NOTE | 2022-11-04 13:09 | VDLE_ITS ---
Reason For Study: PAIN RIGHT LEFT RT GSV is OCCLUDED at mid/upper thigh to Acute deep vein thrombosis is noted in the groin. CFV. It is dilated and NONCOMPRESSIBLE. RT GSV from mid thigh to ankle is Acute deep vein thrombosis is noted in the compressible. FV. It is dilated and NONCOMPRESSIBLE. RT GASTROCNEMIUS V IS NON-COMPRESSIBLE C/W Acute deep vein thrombosis is noted in the DVT POP V. It is dilated and NONCOMPRESSIBLE. RT SSV is NON-COMPRESSIBLE C/W SVT. LT DEIV is PARTIALLY OCCLUDED HOWEVER NON- RT DEIV is NON-COMPRESSIBLE & OCCLUDED C/W COMPRESSIBLE C/W/DVT. DVT. Acute deep vein thrombosis is noted in the CFV. It is dilated and NONCOMPRESSIBLE. Acute deep vein thrombosis is noted in the FV. It is dilated and NONCOMPRESSIBLE. Acute deep vein thrombosis is noted in the POP V. It is dilated and NONCOMPRESSIBLE. Acute deep vein thrombosis is noted in the T/P Trunk. It is dilated and NONCOMPRESSIBLE. Acute deep vein thrombosis is noted in the PTV. It is dilated and NONCOMPRESSIBLE. Acute deep vein thrombosis is noted in the Per V. It is dilated and NONCOMPRESSIBLE. Procedure This is a venous duplex using B-mode, color flow and spectral Doppler. Exam performed in department. A preliminary report was called and/or faxed to Tosin @ clinical desk @ [facility] @ [phone]. Instructed to take PT to ED for treatment. VL/Venous Duplex US, Unilateral Interpretation Summary Superficial thrombophlebitis right great specimen Mary from the mid thigh to th e groin. Superficial thrombophlebitis right small saphenous vein Acute deep venous thrombosis right common femoral, femoral, popliteal, tibioper maciel trunk, posterior tibial, peroneal, and gastrocnemius veins Acute deep venous thrombosis left external iliac, common femoral, femoral, and popliteal veins Ordering Physician: Drake Jimenez Referring Physician: Mickey Bowser Performed By: Martha Gordon, ROSI, RVT
== END | disposition home or self-care (01) ==
PROVIDERS: PCP Family Medicine; Visit Provider Specialist
DX: M79.661 Pain in right lower leg (principal)
CPT/HCPCS: 93971

== ENCOUNTER → 2023-01-18 | Outpatient (CLI) | payer SELFPAY, OTHER ==
--- NOTE | 2023-01-18 08:15 | BI_ITS ---
MAMMOGRAPHY - UNILATERAL SCREENING: RIGHT BREAST REASON FOR EXAM: Female, 72 years old. Routine annual screening examination (unilateral). PERTINENT HISTORY: Personal history of breast cancer. Prior left mastectomy. Daughter with breast cancer. Mother with breast cancer. TECHNIQUE: Digital unilateral breast celena (3D mammographic acquisition) in the CC and MLO projections. 2-D mediolateral oblique (MLO) and craniocaudad (CC) views of both breasts were obtained. CAD: Full Field Digital Mammography with Computer Added Detection was performed. COMPARISON: Comparison is made with prior study dated September 18, 2020 and August 21, 2017. FINDINGS: Breast Composition: The breasts are heterogeneously dense, which may obscure small masses. There are no dominant masses or suspicious calcifications. Stable small benign-appearing bilateral axillary lymph nodes. No other significant abnormalities are identified. There has been no significant change since the prior study. BI/SCREEN MAMM (CAD) W/CELENA UNI R IMPRESSION: Stable unilateral screening mammogram. Yearly follow-up mammogram recommended. (A) ASSESSMENT CATEGORY: BIRADS Category 2: Benign. A letter regarding these results will be sent to the patient by the facility within 30 days. Approximately 10% of breast cancers are not detected by mammography. A normal mammogram should not delay biopsy of a clinically suspicious abnormality. [id number] Electronically Signed: Lc Bethea MD at 11:07 EDT ,
== END | disposition home or self-care (01) ==
PROVIDERS: PCP Family Medicine; Referring Provider Internal Medicine; Visit Provider Internal Medicine
DX: Z12.31 Encounter for screening mammogram for malignant neoplasm of breast (principal); Z85.3 Personal history of malignant neoplasm of breast; Z80.3 Family history of malignant neoplasm of breast
CPT/HCPCS: 77063; 77067

== ENCOUNTER → 2023-07-03 | Outpatient (CLI) | payer SELFPAY, OTHER ==
--- NOTE | 2023-07-03 09:57 | VDLE_ITS ---
Reason For Study: Right leg swelling RIGHT LEFT GSV is normal. CFV is partially compressible with bright POP V is compressible, phasic, and intraluminal echoes, spontaneous, phasic, INCOMPETENT for greater than 1.0 second. competent and demonstrates normal T/P Trunk is compressible. augmentation. PTV is compressible. RT PerV is compressible. CFV is partially compressible with bright intraluminal echoes, spontaneous, phasic, competent and demonstrates normal augmentation. FV is partially compressible with bright intraluminal echoes, spontaneous, phasic, competent and demonstrates normal augmentation. GastrocV is partially compressible with bright intraluminal echoes. SSV is partially compressible with bright intraluminal echoes. Procedure This is a venous duplex using B-mode, color flow and spectral Doppler. Exam performed in department. Compared to 11/04/2022. A preliminary report was called and/or faxed to Dr. Catherine. VL/Venous Duplex US, Unilateral Interpretation Summary Chronic deep venous thrombosis right common femoral, femoral, gastrocnemius vei ns. Incompetent right popliteal vein Chronic superficial thrombophlebitis right small saphenous vein Chronic deep venous thrombosis left common femoral vein Improvement noted from the previous examination of November 04, 2022 Ordering Physician: Shelly Catherine Referring Physician: Shelly Catherine Performed By: Rae Wilder RVT
== END | disposition home or self-care (01) ==
PROVIDERS: PCP Internal Medicine; Referring Provider Internal Medicine; Visit Provider Internal Medicine
DX: I80.01 Phlebitis and thrombophlebitis of superficial vessels of right lower extremity (principal)
CPT/HCPCS: 93971

== ENCOUNTER → 2024-04-03 | Outpatient (CLI) | payer SELFPAY, OTHER ==
--- NOTE | 2024-04-03 08:37 | BI_ITS ---
MAMMOGRAPHY - UNILATERAL SCREENING: RIGHT BREAST REASON FOR EXAM: Female, 73 years old. Routine annual screening examination (unilateral). PERTINENT HISTORY: Personal history of breast cancer. Prior left mastectomy. Daughter with breast cancer. Sisters with breast cancer. Mother with breast cancer. TECHNIQUE: Digital unilateral breast celena (3D mammographic acquisition) in the CC and MLO projections. 2-D mediolateral oblique (MLO) and craniocaudad (CC) views of both breasts were obtained. CAD: Full Field Digital Mammography with Computer Added Detection was performed. COMPARISON: Comparison is made with prior study dated January 18, 2023 and April 18, 2021. FINDINGS: Breast Composition: The breasts are heterogeneously dense, which may obscure small masses. There are no dominant masses or suspicious calcifications. Stable benign-appearing right axillary lymph nodes. No other significant abnormalities are identified. There has been no significant change since the prior study. BI/SCREEN MAMM (CAD) W/CELENA UNI R IMPRESSION: Stable unilateral screening mammogram. Yearly follow-up mammogram recommended. (A) ASSESSMENT CATEGORY: BIRADS Category 2: Benign. A letter regarding these results will be sent to the patient by the facility within 30 days. Approximately 10% of breast cancers are not detected by mammography. A normal mammogram should not delay biopsy of a clinically suspicious abnormality. [id number] Electronically Signed: Lc Bethea MD at 9:35 EDT ,
== END | disposition home or self-care (01) ==
LOC: OPBI 08:35
PROVIDERS: PCP Internal Medicine; Referring Provider Internal Medicine; Visit Provider Internal Medicine
DX: Z12.31 Encounter for screening mammogram for malignant neoplasm of breast (principal); Z80.3 Family history of malignant neoplasm of breast; Z85.3 Personal history of malignant neoplasm of breast; Z90.12 Acquired absence of left breast and nipple
CPT/HCPCS: 77063; 77067

== ENCOUNTER → 2025-03-05 | Outpatient (CLI) | payer OTHER, SELFPAY ==
--- NOTE | 2025-03-05 10:26 | VDLE_ITS ---
Reason For Study Reason For Study: LLE PAin RIGHT LEFT CFV is compressible, phasic, and INCOMPETENT for GSV is normal. greater than 1.0 second. CFV is compressible, phasic, and INCOMPETENT for Procedure greater than 1.0 second. This is a venous duplex using B-mode, color flow and FV is PARTIALLY compressible, phasic, and INCOMPETENT spectral Doppler. for greater than 1.0 second. Bright intraluminal Exam performed in department. echoes are noted within the vessel. Finding is The exam was diagnostic. consistent with CHRONIC DVT. A preliminary report was called and/or faxed to [place] POP is PARTIALLY compressible, phasic, and Luli and Alexsandra - RN at [facility] office. INCOMPETENT for greater than 1.0 second. Bright intraluminal echoes are noted within the vessel. Finding is consistent with CHRONIC DVT. T/P Trunk is PARTIALLY compressible. Bright intraluminal echoes are noted within the vessel. Finding is consistent with CHRONIC DVT. Gastrocnemius Vein is PARTIALLY compressible. Bright intraluminal echoes are noted within the vessel. Finding is consistent with CHRONIC DVT. PTV is compressible. Peroneal Vein is compressible. SSV is NONCOMPRESSIBLE approximately 10cm distal to junction. Portions of the vessel also appear partially compressible. Finding is consistent with acute on chronic SVT. VL/Venous Duplex US, Unilateral Interpretation Summary Acute on chronic superficial vein thrombosis noted in the left small saphenous vein. Chronic deep vein thrombosis noted in the left femoral vein, popliteal vein, ti bioperoneal trunk vein, gastrocnemius vein. Incidental reflux noted in the left common femoral vein, femoral vein, poplitea l vein. Incidental reflux noted in the right common femoral vein Ordering Physician: Jamal Rockwell Referring Physician: Shelly Catherine Performed By: Fbaián Shields RVT
== END | disposition home or self-care (01) ==
LOC: CVS 10:26
PROVIDERS: PCP Internal Medicine; Referring Provider Physician Assistant; Visit Provider Physician Assistant
DX: M79.662 Pain in left lower leg (principal); I70.92 Chronic total occlusion of artery of the extremities
CPT/HCPCS: 93971